=== PATIENT | male | born 1980 | race Caucasian/White ===

== ENCOUNTER → 2021-02-04 07:56 | Outpatient (CLI) | payer OTHER, SELFPAY ==
--- NOTE | 2021-02-04 | DI.MRI.S_ITS ---
PROCEDURE: MR FOOT RT WO CON INDICATIONS: Pain in right foot TECHNIQUE: Noncontrast sagittal T1 spin echo and T2 fast spin echo with fat saturation, long-axis T1 spin echo and T2 fast spin echo with fat saturation, short-axis T1 spin echo and T2 fast spin echo with fat saturation through the forefoot. COMPARISON: None. FINDINGS: Image quality: Excellent. Bones and joints: No bone marrow contusions or metatarsal stress fractures. The sesamoid bones appear in expected positions, without internal edema. No metatarsophalangeal joint degeneration. No intraosseous lesions. Soft tissues: The visualized plantar foot muscles demonstrate normal signal and bulk. Visualized flexor and extensor tendons appear intact, without tenosynovitis. The distal insertions of the peroneus brevis and longus tendons appear intact. The principal Lisfranc ligament appears intact. No soft tissue ganglion cysts or bursal fluid collections. Sagittal images demonstrate low-grade sprain/partial-thickness tear involving lateral capsuloligamentous structures near its distal insertion of great toe. IMPRESSION: 1. Finding is suggestive of low-grade plantar plate tear involving distal lateral capsuloligamentous structures of the great toe. 2. No marrow edema. No evidence of fracture or dislocation. Rest of the tendons and ligaments are intact. Dictated by: Mau Haro M.D. on 02/04/2021 at 9:44 Approved by: Mau Haro M.D. on 02/04/2021 at 9:54
== END ==
PROVIDERS: PCP Student in an Organized Health Care Education/Training Program; Referring Provider Student in an Organized Health Care Education/Training Program; Visit Provider Student in an Organized Health Care Education/Training Program
DX: M79.671 Pain in right foot (principal)
CPT/HCPCS: 73718